=== PATIENT | male | born 1990 | race American Indian/Alaskan Native ===

== ENCOUNTER 2016-11-23 15:36 | Emergency (ER) | payer BC ==
[2016-11-23 15:36] VITALS: BMI 26.1
[2016-11-23 15:49] VITALS: BP 148/83; PULSE 79; RESP 16; TEMP 98.4; O2SAT 99
--- NOTE | 2016-11-23 16:14 | ED PDOC ---
Arrival/HPI - General Chief Complaint: Chest Pain Time Seen by Provider: 11/23/16 15:44 Historian: Patient - History of Present Illness Narrative History of Present Illness (Text): 11/23/16 15:55 Conchita Gilmore is a 25 year old male, whose past medical history includes diabetes and hypertension, who presents to the emergency department complaining of chest pain since this morning. Patient describes his pain to be midsternal but is unable to characterize the pain. Patient reportedly states that he had an AR when he was 18 year old, no angiogram was done, and no stents were placed. Patient is a poor historian and states that his last AR occured in [place] and is therefore unsure eho his providers were at that time. Upon arrival, patient is asking for immediate discharge and does not want ant further evaluation to be done. Time/Duration: 4-6 hours Symptom Onset: Gradual Symptom Course: Unchanged Activities at Onset: Rest Context: Home Past Medical History - Provider Review Nursing Documentation Reviewed: Yes - Past History Past History: No Previous - Infectious Disease Hx of Infectious Diseases: None - Tetanus Immunization Tetanus Immunization: Unknown - Cardiac Hx Cardiac Disorders: Yes Hx Hypertension: Yes Other/Comment: hyper trophic cardiomyopathy - Pulmonary Hx Respiratory Disorders: No - Endocrine/Metabolic Hx Diabetes Mellitus Type 2: Yes (DIET CONTROLLED) - Hematological/Oncological Hx Anemia: Yes - Psychiatric Hx Depression: No Hx Substance Use: No - Past Surgical History Past Surgical History: No Previous - Anesthesia Hx Anesthesia: No - Suicidal Assessment Feels Threatened In Home Enviroment: No Family/Social History - Physician Review Nursing Documentation Reviewed: Yes Family/Social History: No Known Family HX Smoking Status: Light Smoker < 10 Cigarettes Daily Hx Alcohol Use: Yes Frequency of alcohol use: Few days per week Hx Substance Use: No Hx Substance Use Treatment: No Allergies/Home Meds Allergies/Adverse Reactions: Allergies peanut Allergy (Verified 12/06/15 11:44) ANAPHYLAXIS Home Medications: Home Meds Medication Instructions Recorded Confirmed No Known Home Med 11/23/16 11/23/16 Review of Systems - Physician Review All systems were reviewed & negative as marked: Yes - Review of Systems Constitutional: absent: Fevers, Night Sweats Eyes: absent: Vision Changes ENT: absent: Hearing Changes Respiratory: absent: SOB Cardiovascular: Chest Pain Gastrointestinal: absent: Abdominal Pain Genitourinary Male: absent: Dysuria, Urinary Output Changes Musculoskeletal: absent: Arthralgias, Back Pain Skin: absent: Rash Neurological: absent: Headache Endocrine: absent: Diaphoresis Hemo/Lymphatic: absent: Adenopathy Psychiatric: absent: Anxiety Physical Exam Vital Signs Reviewed: Yes Vital Signs Temp Pulse Pulse Resp BP BP Pulse Ox 11/23/16 16:11 79 148/83 11/23/16 15:49 98.4 F 79 16 148/83 99 Temperature: Afebrile Blood Pressure: Normal Pulse: Regular Respiratory Rate: Normal Appearance: Positive for: Well-Appearing, Non-Toxic, Comfortable Pain Distress: None Mental Status: Positive for: Alert and Oriented X 3 - Systems Exam Head: Present: Atraumatic, Normocephalic Pupils: Present: PERRL Extroacular Muscles: Present: EOMI Conjunctiva: Present: Normal Mouth: Present: Moist Mucous Membranes Neck: Present: Normal Range of Motion Respiratory/Chest: Present: Clear to Auscultation, Good Air Exchange. No: Respiratory Distress, Accessory Muscle Use Cardiovascular: Present: Regular Rate and Rhythm, Normal S1, S2. No: Murmurs Abdomen: Present: Tenderness (mild epigatric tenderness). No: Rebound, Guarding Back: Present: Normal Inspection Upper Extremity: Present: Normal Inspection. No: Cyanosis, Edema Lower Extremity: Present: Normal Inspection. No: Edema Neurological: Present: GCS=15, CN II-XII Intact, Speech Normal Skin: Present: Warm, Dry, Normal Color. No: Rashes Psychiatric: Present: Alert, Oriented x 3, Normal Insight, Normal Concentration Medical Decision Making ED Course and Treatment: 11/23/16 16:00 Impression: 25 year old male complaining of chest pain since this morning. Progress Notes: EKG: Ordered, reviewed, and independently interpreted the EKG. Rate : 78 BPM Rhythm : NSR Interpretation : No ST-segment elevations or depressions, no T-wave inversions, normal intervals. Comparison : No previous EKG for comparison. Leaving Against Medical Advice (AMA): The patient is choosing to leave against medical advice. I have personally explained to the patient that choosing to do so may result in permanent bodily harm or . I have discussed at great length that without further evaluation and monitoring there may be unforeseen circumstances and/or deterioration causing permanent bodily harm or as a result of their choice. The patient is alert, oriented, and shows the mental capacity to make clear decisions regarding the patients health care at this time. The patient continues to wish to leave against medical advice. In light of the patients decision to leave against medical advice, follow-up has been arranged and the patient is aware of the importance to following up as instructed. The patient has been advised that they should return to the emergency room immediately if they change their mind at any time, or if their condition begins to change or worsen in any way. 11/23/16 16:34 pt reports h/[place] of [place], in "[place]". pt cannot provide futher hx. pt advised to check labs, however on arriavl pt is asking for immediate d/c. signs Leaving Against Medical Advice (AMA) - Scribe Statement The provider has reviewed the documentation as recorded by the Scribe Tasia John Provider Scribe Attestation: All medical record entries made by the Scribe were at my direction and personally dictated by me. I have reviewed the chart and agree that the record accurately reflects my personal performance of the history, physical exam, medical decision making, and the department course for this patient. I have also personally directed, reviewed, and agree with the discharge instructions and disposition. Disposition/Present on Arrival - Present on Arrival Any Indicators Present on Arrival: No History of DVT/PE: No History of Uncontrolled Diabetes: No Urinary Catheter: No History of Decub. Ulcer: No History Surgical Site Infection Following: None - Disposition Have Diagnosis and Disposition been Completed?: Yes Diagnosis: Chest pain Disposition: HOME/ ROUTINE Disposition Time: 16:36 Patient Problems: Current Active Problems Problem Status Onset Chest pain Acute Condition: STABLE Discharge Instructions (ExitCare): Chest Pain (ED), Against Medical Advice (ED) Additional Instructions: please follow up with you rdoctor/specialist. return to emergency room with worsening symptoms or concerns. Referrals: [facility] [Outside] - [place] up [place] [facility] [place] [facility] [place] - Follow up with primary Leonel Pimentel MD [Staff Provider] - Follow up with primary Forms: [employer] (Dutch)
--- NOTE | 2016-11-24 10:42 | CARD ---
APPROVED REPORT EKG Measurement Heart [id number] AR [id number] <Conclusion> Normal sinus rhythm with sinus arrhythmia No change
== END 2016-11-23 16:15 | disposition home or self-care (01) ==
LOC: ED 15:36
DX: R07.9 Chest pain, unspecified (principal)

== ENCOUNTER 2017-06-11 23:40 | Observation (INO) | payer BC ==
[2017-06-11 23:43] VITALS: BMI 31.6
[2017-06-12] MEDS ORDERED: Albuterol-Ipratrop 3 mg / 0.5 (3 ml) UD IH STA (00:35)
--- NOTE | 2017-06-12 00:42 | ED PDOC ---
Arrival/HPI - General Chief Complaint: Chest Pain Time Seen by Provider: 06/12/17 00:33 Historian: Patient - History of Present Illness Narrative History of Present Illness (Text): 06/12/17 00:30 A 26 year old male, whose past medical history includes diabetes(diet controlled ),hypertension,Raynauds Disease presents to the emergency department complaining of chest discomfort which patient describes as pressure-like. Patient reports also reports hx. of chronic cough past month.Started antibiotic with no relief.No SOB.Patient denies back pain, leg pain, or any other complaints. No PMD Time/Duration: > week (past few weeks), Other (tonight chest discomfort began) Symptom Onset: Sudden Symptom Course: Unchanged Past Medical History - Provider Review Nursing Documentation Reviewed: Yes - Past History Past History: No Previous - Infectious Disease Hx of Infectious Diseases: None - Tetanus Immunization Tetanus Immunization: Unknown - Cardiac Hx Cardiac Disorders: Yes Hx Hypertension: Yes Other/Comment: hyper trophic cardiomyopathy - Pulmonary Hx Respiratory Disorders: No - Neurological Hx Neurological Disorder: No - HEENT Hx HEENT Disorder: No - Renal Hx Renal Disorder: No - Endocrine/Metabolic Hx Endocrine Disorders: Yes Hx Diabetes Mellitus Type 2: Yes (DIET CONTROLLED) - Hematological/Oncological Hx Blood Disorders: Yes Hx Anemia: Yes - Integumentary Hx Dermatological Disorder: No - Musculoskeletal/Rheumatological Hx Musculoskeletal Disorders: No - Gastrointestinal Hx Gastrointestinal Disorders: No - Genitourinary/Gynecological Hx Genitourinary Disorders: No - Psychiatric Hx Psychophysiologic Disorder: No Hx Depression: No Hx Substance Use: No - Past Surgical History Past Surgical History: No Previous - Anesthesia Hx Anesthesia: No - Suicidal Assessment Feels Threatened In Home Enviroment: No Family/Social History - Physician Review Nursing Documentation Reviewed: Yes Family/Social History: No Known Family HX Smoking Status: Light Smoker < 10 Cigarettes Daily Hx Alcohol Use: Yes Hx Substance Use: No Hx Substance Use Treatment: No Allergies/Home Meds Allergies/Adverse Reactions: Allergies peanut Allergy (Verified 06/11/17 23:42) ANAPHYLAXIS Home Medications: Home Meds Medication Instructions Recorded Confirmed No Known Home Med 11/23/16 06/11/17 Review of Systems - Physician Review All systems were reviewed & negative as marked: Yes - Review of Systems Constitutional: Fevers (subjective) Respiratory: Cough (chronic cough for past few weeks). absent: SOB Cardiovascular: Chest Pain (associated chest discomfort beginning tonight) Musculoskeletal: absent: Back Pain, Other (no leg pain) Physical Exam Vital Signs Reviewed: Yes Vital Signs Temp Pulse Resp BP Pulse Ox 06/12/17 04:03 98 F 81 18 130/83 99 06/12/17 02:45 92 H 19 121/55 L 97 06/12/17 01:36 99 H 22 141/71 96 06/11/17 23:43 97.3 F L 108 H 20 127/88 99 Temperature: Afebrile Blood Pressure: Normal Pulse: Regular Respiratory Rate: Normal Appearance: Positive for: Well-Appearing Pain Distress: None Mental Status: Positive for: Alert and Oriented X 3 - Systems Exam Head: Present: Atraumatic, Normocephalic Pupils: Present: PERRL Extroacular Muscles: Present: EOMI Conjunctiva: Present: Normal Mouth: Present: Moist Mucous Membranes Neck: Present: Normal Range of Motion Respiratory/Chest: Present: Rhonchi (bilaterally) Cardiovascular: Present: Regular Rate and Rhythm, Normal S1, S2. No: Murmurs Abdomen: Present: Normal Bowel Sounds. No: Tenderness, Distention, Peritoneal Signs Back: Present: Normal Inspection Upper Extremity: Present: Normal Inspection. No: Cyanosis, Edema Lower Extremity: Present: Normal Inspection. No: Edema Neurological: Present: GCS=15, CN II-XII Intact, Speech Normal Skin: Present: Warm, Dry, Normal Color. No: Rashes Psychiatric: Present: Alert, Oriented x 3, Normal Insight, Normal Concentration Medical Decision Making ED Course and Treatment: 06/12/17 00:34 Impression: 26 year old male with chronic cough for 1 month and tonight associated chest discomfort. Physical exam shows rhonchi bilaterally; overall normal examination. Plan: -- EKG -- Chest X-ray -- Labs -- Duoneb -- Rapid Flu Test -- Reassess and disposition Prior Visits: Notes and results from previous visits were reviewed. Patient was last seen in the emergency department on 11/23/2016 for chest pain. Patient was d/c home. Progress Notes: EKG: Ordered, reviewed, and independently interpreted the EKG. Rate : 104 BPM Rhythm : Sinus tachycardia Interpretation : Non-specific ST- and T- wave changes. Comparison : No previous EKG for comparison. 06/12/17 05:[address] Dudley, whom accepts patient into service. Requests Dr. Armando and Dr. Nava consults. - Lab Interpretations Lab Results: 06/12/17 00:45 06/12/17 00:45 Lab Results 06/12/17 00:45: Influenza Typ A,B (EIA) Negative for flu a/b 02 00:45: WBC 6.0 D, RBC 5.01, Hgb 13.6 L, Hct 39.9 L, MCV 79.6 L, MCH 27.1, MCHC 34.1, RDW 13.1, Plt Count 255, MPV 8.3 06/12/17 00:45: Sodium 143, Potassium 3.8, Chloride 105, Carbon Dioxide 27, Anion Gap 15, BUN 17, Creatinine 1.2, Est GFR ( Amer) > 60, Est GFR (Non- Af Amer) > 60, Random Glucose 98, Calcium 10.1, Total Bilirubin 0.2, AST 31, ALT 38, Alkaline Phosphatase 57, Lactate Dehydrogenase 470, Total Creatine Kinase 170, Troponin I < 0.01, Total Protein 7.3, Albumin 4.3, Globulin 3.0, Albumin/Globulin Ratio 1.4 06/12/17 00:45: PT 10.5, INR 0.92 L, APTT 27.3, D-Dimer, Quantitative TNP I have reviewed the lab results: Yes - RAD Interpretation Narrative RAD Interpretations (Text): 06/12/17 04:49 CXR- No acute process Radiology Orders: 06/12/17 00:34 CHEST PORTABLE [RAD] Stat Watch And Clock Repair Clerk: ED Physician - Medication Orders Current Medication Orders: Discontinued Medications Albuterol/Ipratropium (Duoneb 3 Mg/0.5 Mg (3 Ml) Ud) 3 ml IH ONCE STA Stop: 06/12/17 00:36 Last Admin: 06/12/17 00:43 Dose: 3 ml Aspirin (Aspirin) 325 mg PO ONCE STA Stop: 06/12/17 04:56 Last Admin: 06/12/17 05:01 Dose: 325 mg - Scribe Statement The provider has reviewed the documentation as recorded by the Aida Guadalupe Provider Scribe Attestation: All medical record entries made by the Yelenaibaguila were at my direction and personally dictated by me. I have reviewed the chart and agree that the record accurately reflects my personal performance of the history, physical exam, medical decision making, and the department course for this patient. I have also personally directed, reviewed, and agree with the discharge instructions and disposition. Disposition/Present on Arrival - Present on Arrival Any Indicators Present on Arrival: No History of DVT/PE: No History of Uncontrolled Diabetes: No Urinary Catheter: No History of Decub. Ulcer: No History Surgical Site Infection Following: None - Disposition Have Diagnosis and Disposition been Completed?: Yes Diagnosis: Chest pain Disposition: HOSPITALIZED Disposition Time: 04:58 Patient Plan: Observation Patient Problems: Current Active Problems Problem Status Onset Chest pain Acute Condition: STABLE Discharge Instructions (ExitCare): Chest Pain (ED) Forms: [employer] (Slovenian)
[2017-06-12 01:22] LABS: ALB/GLOB RATIO 1.4 (1.1-1.8); ALBUMIN 4.3 g/dL (3.0-4.8); ALT/SGPT 38 U/L (7-56); AST/SGOT 31 U/L (17-59); BLOOD UREA NITROGEN 17 mg/dL (7-21); CALCIUM 10.1 mg/dL (8.4-10.5); GFR AFRICAN-AMERICAN > 60; GFR NON-AFRICAN AMERICAN > 60; HEMOGLOBIN 13.6 g/dL (14.0-18.0); MEAN CELL VOLUME 79.6 fl (80.0-105.0); MEAN CORPUSCULAR HEMOGLOBIN 27.1 pg (25.0-35.0); MEAN CORPUSCULAR HGB CONC 34.1 g/dl (31.0-37.0); MEAN PLATELET VOLUME 8.3 fl (7.0-11.0); RBC 5.01 10^6/uL (3.5-6.1); RED CELL DISTRIBUTION WIDTH 13.1 % (11.5-14.5)
[2017-06-12 01:33] LABS: TROPONIN I < 0.01 ng/mL
[2017-06-12 02:29] LABS: INR 0.92 (0.93-1.08); PARTIAL THROMBOPLASTIN TIME 27.3 Seconds (25.1-36.5); PROTHROMBIN TIME 10.5 SECONDS (9.4-12.5)
[2017-06-12 04:04] VITALS: O2SAT 99
[2017-06-12] MEDS ORDERED: Albuterol-Ipratrop 3 mg / 0.5 (3 ml) UD IH PRN (06:55)
[2017-06-12] MEDS: Budesonide 0.5 mg/2 ml Inhal Susp UD IH SCH ×2 (07:47→19:42)
[2017-06-12] MEDS: Albuterol-Ipratrop 3 mg / 0.5 (3 ml) UD IH SCH ×3 (07:47→19:42)
--- NOTE | 2017-06-12 09:26 | HP ---
HISTORY OF PRESENT ILLNESS: I have seen him in the past. I was called down to the emergency room to evaluate him. He is in an observation bed. He comes in to the emergency room with a history of chest discomfort, pressure-like, shortness of breath, chronic cough for about a month. He was on the antibiotics. No relief. He cannot get this better. Now he is feeling bad and he comes to the emergency room. This is a 26-year-old man with shortness of breath and chest discomfort. PAST MEDICAL HISTORY: He has a past medical history that includes diabetes; hypertension; Raynaud's; chronic cough, it is going on a few weeks, he had the antibiotics, it did not work, he failed outpatient treatment. He has got hypertrophic cardiomyopathy. He has got diet-controlled diabetes, anemia history. FAMILY HISTORY: He has had unknown family history I believe of diabetes. SOCIAL HISTORY: He is still smoking cigarettes, still drinking alcohol. No drugs. ALLERGIES:' HE HAS A PEANUT ALLERGY. MEDICATIONS: He tells he takes no medications at home. REVIEW OF SYSTEMS: He is having fevers, subjective; sore throat; change in voice; cough, chronic for weeks, productive some days, nonproductive other days, some mucus, some yellow, some clear; chest discomfort; chest pain, just started, which made it worse the other night. No nausea, vomiting, constipation, diarrhea. No back pain. He could still walk. No problems with his legs. His skin for the most part which he could tell is intact. No ulcers or rashes. PHYSICAL EXAMINATION: VITAL SIGNS: He has a 97.3 temp, 108 pulse, 20 respiratory rate, 127/88 blood pressure, 99% O2 sat on oxygen. HEENT: His head is atraumatic, normocephalic. He is well appearing. He looks uncomfortable. Alert and oriented x3. Extraocular muscles are intact. Pupils reactive to light. Membranes are dry. NECK: Supple. LUNGS: He has decreased breath sounds, rhonchi, bronchitis sounds bilaterally, changes with cough. HEART: Regular rate. Normal S1 and S2. Normal bowel sounds. No tenderness. No guarding. No rebound. No CVA tenderness either. EXTREMITIES: Have no edema. GCS is 15. Cranial nerves II through XII grossly intact. Normal speech. SKIN: Warm and dry. No apparent rashes or ulcers appreciated. NEUROLOGIC: Alert and oriented x3. Normal insight. LYMPHATICS: Thyroid midline. No palpable appreciable lymphadenopathy. LABORATORY DATA: He had multiple tests. He has a 6 white count, 13.6 hemoglobin, 39.9 hematocrit with a 255 platelets. 0.92 INR. The D-dimer is pending. 143 sodium, potassium 3.8, BUN 70, creatinine 1.2, GFR is greater than 60, sugar is 98, calcium is 10.1, total bili is 0.2, AST is 31, ALT is 38, alk phosphatase is 57, lactate dehydrogenase is 470, total creatine kinase is 170. Troponin I is less than 0.01, total protein 7.3, albumin is 4.3 and the influenza is negative. There is a chest x-ray that is pending. IMPRESSION AND PLAN: He will be put on observation status. He will have consult with Cardiology and Pulmonology. He is on DuoNebs, Levaquin, Solu-Medrol. We will check his troponins and he is here for shortness of breath, chest pain. Pool Dudley DO
--- NOTE | 2017-06-12 09:46 | RAD ---
HISTORY: cough COMPARISON: 12/06/2015 FINDINGS: LUNGS: No active pulmonary disease. PLEURA: No significant pleural effusion identified, no pneumothorax apparent. CARDIOVASCULAR: Normal. OSSEOUS STRUCTURES: No significant abnormalities. VISUALIZED UPPER ABDOMEN: Normal. OTHER FINDINGS: None. IMPRESSION: No active disease.
[2017-06-12] MEDS: MethylPREDNISolone 40 mg Vial IVP SCH ×2 (10:03→21:27)
[2017-06-12] MEDS: levoFLOXacin 500 MG TAB PO SCH (10:03)
--- NOTE | 2017-06-12 11:52 | CON ---
DATE: 06/12/2017 PULMONARY CONSULTATION REASON FOR CONSULTATION: Cough. REFERRING PHYSICIAN: Pool Dudley DO HISTORY OF PRESENT ILLNESS: The patient is a 26-year-old male, with past medical history significant for diabetes mellitus, hypertension, who presents to [facility] with main complaint of chest discomfort for the past 2 days. The patient describes the chest discomfort as a pressure-like feeling. The patient was thus admitted for additional evaluation. There is no history of shortness of breath at rest or dyspnea on exertion. There is a history of cough with occasional sputum production for the past month. There is no history of coughing up of blood. There is no history of chest discomfort - made worse with deep respirations. However, the chest discomfort is made worse when he coughs. There is no history of temperatures, chills or infectious exposure. There is no history of night sweats, weight loss or appetite change prior to the above events. No history of leg or calf pains. No history of syncope or diaphoresis. No history of recent travel or trauma. REVIEW OF SYSTEMS: No history of nausea, vomiting or diarrhea. No acute urinary symptoms. No new neurologic complaints. Rest of the review of systems is negative. ALLERGIES: PEANUTS. SOCIAL HISTORY: Positive for tobacco and negative for alcohol. FAMILY HISTORY: No inheritable diseases. HOME MEDICATIONS: Listed as - no known home medications. PHYSICAL EXAMINATION GENERAL: The patient is not short of breath at rest. He is not using accessory muscles for breathing. VITAL SIGNS: Temperature is 98.0, pulse is 76, respirations 19, blood pressure 139/76. Oxygen saturation on room air is 99%. HEENT: Normocephalic, atraumatic. No JVD. CARDIOVASCULAR: Positive S1, S2. No S3 gallop. LUNGS: Decreased breath sounds at the bases. Scattered bilateral rhonchi. No wheezing. EXTREMITIES: No clubbing, cyanosis or edema. Calves are nontender to palpation. GI: Abdomen is soft, nontender and nondistended. Bowel sounds are positive. SKIN: No acute rash. NEUROLOGIC: Limited at the present time. PERTINENT LABORATORY DATA: Chest x-ray was done and reviewed. There are no significant infiltrates noted. Official results are pending. CBC: White count 6.0, hemoglobin 13.6, hematocrit 39.9, platelets of 255,000. Complete metabolic profile - all values within normal limits. IMPRESSION: 1. Acute bronchitis. 2. Chest discomfort. 3. Mild anemia. 4. Diabetes mellitus. PLAN: The patient presents to [facility] with chief complaint of chest discomfort over the past two days. He does also give a history of a cough, with occasional sputum production, for the past month. While he states that the chest discomfort is a pressure-like feeling, he also states that the chest discomfort is elicited by coughing(?musculoskeletal). Cardiology evaluation with Dr. Armando has been ordered. I did review the chest x-ray as above. I do not appreciate any significant infiltrates. Official results are pending. On physical exam, the patient is in mild bronchospasm. However, there is no significant alveolar-arterial gradient. I will start the patient on nebulizer treatments and low-dose intravenous steroids for now. I will also place the patient on oral antibiotic therapy - given the chronicity of the symptoms. The patient does feel better this morning and is clinically improved - compared to the past few days. Additional pulmonary intervention will be based on the clinical status of the patient. I did discuss the above with Dr. Dudley. Thank you very much for this pulmonary consultation. Gold Aguayo MD [facility]
[2017-06-12 12:27] VITALS: RESP 20
[2017-06-12] MEDS ORDERED: Influenza Vaccine 60 mcg/0.5 mL SYR (4YR UP) IM ONE (14:37)
[2017-06-12] MEDS ORDERED: Pneumococcal 23-Valent Vaccine IM ONE (14:37)
--- NOTE | 2017-06-12 15:56 | CON ---
DATE: 06/12/2017 CARDIOLOGY CONSULTATION HISTORY OF PRESENT ILLNESS: The patient is a 26-year-old male who presents with an episode of chest discomfort after an episode of coughing. According to the patient, he has been on antibiotics for this upper respiratory infection for the past several weeks. The patient's past medical history is free of cardiac disease. His echocardiogram in 2016 revealed normal LV function. However, he has cardiac risk factors include diabetes mellitus, hypertension, Raynaud's phenomenon as well as a family history of CAD. In addition, social history reveals that the patient smokes approximately 10 cigarettes per day. No drugs history. No previous cardiac history. REVIEW OF SYSTEMS: A 14-point review of systems reviewed in detail. His symptoms are dominated by upper respiratory infection. PHYSICAL EXAMINATION VITAL SIGNS: The blood pressure is 130/76, the heart rates in the 70s. NECK: Negative JVD. LUNGS: Without rales. HEART: Reveals S1 and S2. EXTREMITIES: Without edema. EKG shows normal sinus rhythm with no acute changes. LABORATORY DATA: His hemoglobin is 13.6. Troponins are negative x2. IMPRESSION: 1. Atypical chest pain. 2. No evidence for acute coronary syndrome. 3. Diabetes mellitus. 4. Hypertension. 5. History of Raynaud's phenomenon. 6. He is an active smoker. PLAN: Given these findings, the patient from a cardiac perspective can be discharged. Given his cardiac risk factors, we will bring the patient back next week for a stress test. I have discussed with the patient about his needs to stop smoking. He understands the risk. Adolph Armando MD
--- NOTE | 2017-06-12 22:07 | CARD ---
APPROVED REPORT EKG Measurement Heart [id number] DC [id number] [id number] <Conclusion> Sinus tachycardia Otherwise normal ECG
[2017-06-13] MEDS: Albuterol-Ipratrop 3 mg / 0.5 (3 ml) UD IH SCH ×2 (01:09→07:17)
[2017-06-13 07:14] LABS: HEMOGLOBIN 14.1 g/dL (14.0-18.0); MEAN CELL VOLUME 77.2 fl (80.0-105.0); MEAN CORPUSCULAR HEMOGLOBIN 26.3 pg (25.0-35.0); MEAN CORPUSCULAR HGB CONC 34.1 g/dl (31.0-37.0); MEAN PLATELET VOLUME 8.5 fl (7.0-11.0); RBC 5.36 10^6/uL (3.5-6.1); WHITE BLOOD COUNT 12.5 10^3/ul (4.5-11.0)
[2017-06-13] MEDS: Budesonide 0.5 mg/2 ml Inhal Susp UD IH SCH (07:17)
[2017-06-13 07:20] LABS: ALB/GLOB RATIO 1.5 (1.1-1.8); ALBUMIN 4.4 g/dL (3.0-4.8); ALT/SGPT 30 U/L (7-56); AST/SGOT 22 U/L (17-59); BLOOD UREA NITROGEN 13 mg/dL (7-21); CALCIUM 10.3 mg/dL (8.4-10.5); GFR AFRICAN-AMERICAN > 60; GFR NON-AFRICAN AMERICAN > 60
--- NOTE | 2017-06-13 08:09 | PN ---
DATE: 06/13/2017 PULMONARY NOTE SUBJECTIVE: The patient appears very comfortable this morning. He is not short of breath at rest. OBJECTIVE VITAL SIGNS (last noted in the computer): Temperature is 98.0, pulse 56, respirations 18, blood pressure 125/72. Oxygen saturation on room air is 99%. HEENT: Normocephalic, atraumatic. No JVD. CARDIOVASCULAR: Positive S1, S2. No S3 gallop. LUNGS: Improved breath sounds at the bases. Significant decrease in the bilateral rhonchi. No wheezing. EXTREMITIES: No clubbing, cyanosis or edema. Calves are nontender to palpation. GASTROINTESTINAL: Abdomen is soft, nontender, nondistended. Bowel sounds are positive. SKIN: No acute rash. NEUROLOGIC: Exam limited at the present time. IMPRESSION 1. Acute bronchitis. 2. Chest discomfort - resolved. 3. Mild anemia. 4. Diabetes mellitus. PLAN: The patient appears very comfortable this morning. He is not short of breath at rest. His chest discomfort has now resolved. He does state to feeling much, much better overall. He is asking whether he can go home today. On physical exam, there is a significant decrease in the bronchospasm. In addition, the oxygen saturation on room air is now 99%. I will continue the current nebulizer treatments and change to oral steroids this morning. The patient also remains on oral antibiotic therapy. There are no temperatures noted. Clinical status of the patient is significantly improved. Input by Dr. Armando (Cardiology) is also noted. I will discuss the above with Dr. Dudley this morning. Gold Aguayo MD [facility]
[2017-06-13 08:13] VITALS: BP 117/63; PULSE 83; TEMP 97.5
[2017-06-13] MEDS: levoFLOXacin 500 MG TAB PO SCH (09:08)
--- NOTE | 2017-06-14 01:40 | DS ---
HISTORY OF PRESENT ILLNESS: He is doing well, sitting out of bed to chair, wants to go home. He is breathing well. He is off IV steroids. He is on prednisone. He will be on albuterol inhaler, ipratropium inhaler, budesonide inhaler, prednisone 40 for 3 days, 30 for 3 days, 20 for 3 days, 10 for 3 days, then stop; Levaquin 500 one tablet for 6 days. PHYSICAL EXAMINATION: VITAL SIGNS: 97.5 temp, 83 pulse, 117/63 blood pressure, 20 respiratory rate, 98% O2 sat on room air. HEENT: Head is atraumatic, normocephalic. HEART: Regular rate. LUNGS: Decreased breathing sounds, but clear to auscultation. No wheezes. No rhonchi. No rales. ABDOMEN: Soft, nontender. Positive bowel sounds. EXTREMITIES: No edema. LABORATORY DATA: He has a 143 sodium, potassium 4.3, BUN 30, creatinine 1, GFR is greater than 60, sugar is 136, calcium is 10.3, total bili is 0.4, AST is 22, ALT is 30, alk phos 50, troponin is less than 0.01, total protein 7.4. White count 12.5 - steroid related, 14.1 hemoglobin, 41.4 hematocrit with 251 platelets. ASSESSMENT AND PLAN: He was seen by Cardiology and by Pulmonology. They both said he can be discharged for outpatient followup. His prescriptions were given, his diet was given, outpatient followup was given. The patient is doing very well. Call us if there are any issues. Pool Dudley DO
== END 2017-06-13 09:57 | disposition home or self-care (01) ==
LOC: ED 23:40 → ERH 06-12 05:01 → 3RSO 06-12 07:06 → 5RNO 06-12 13:35
PROVIDERS: ADMIT Family Medicine; ATTEND Family Medicine
DX: J20.9 Acute bronchitis, unspecified (principal); D64.9 Anemia, unspecified; E11.9 Type 2 diabetes mellitus without complications; F17.210 Nicotine dependence, cigarettes, uncomplicated; I10 Essential (primary) hypertension; I73.00 Raynaud's syndrome without gangrene; I42.2 Other hypertrophic cardiomyopathy; J06.9 Acute upper respiratory infection, unspecified; Z82.49 Family history of ischemic heart disease and other diseases of the circulatory system; R07.89 Other chest pain
CPT/HCPCS: 36415; 71045; 80053; 82550; 82948; 83615; 84484; 85027; 85610; 85730; 87804; 93005; 94640; 94760; 99285; G0378; J2920

== ENCOUNTER 2017-11-08 07:57 | Emergency (ER) | payer BC ==
[2017-11-08 07:57] VITALS: BMI 31.6
--- NOTE | 2017-11-08 08:18 | ED PDOC ---
Arrival/HPI <Kira Pan - Last Filed: 11/08/17 09:10> - General Historian: Patient <Negin Newberry - Last Filed: 11/08/17 09:12> - General Chief Complaint: Headache Time Seen by Provider: 11/08/17 08:01 - History of Present Illness Narrative History of Present Illness (Text): 11/08/17 08:16 Patient is a 26 year old male with past medical history of DM, HTN, Raynaud's Disease who presents to the emergency dept for migraine that started last night at approximately 10pm. Patient states that the migraine has been worsening, constant in nature. Sensitive to light. Has not tried taking anything for the migraine. Last migraine was 7 months ago. Currently feels nauseous but denies any vomiting. (Negin Newberry) Past Medical History - Provider Review Nursing Documentation Reviewed: Yes - Past History Past History: No Previous - Infectious Disease Hx of Infectious Diseases: None - Tetanus Immunization Tetanus Immunization: Unknown - Cardiac Hx Cardiac Disorders: Yes Hx Hypertension: Yes Other/Comment: hyperTROPHIC cardiomyopathy - Pulmonary Hx Respiratory Disorders: No - Neurological Hx Neurological Disorder: No - HEENT Hx HEENT Disorder: No - Renal Hx Renal Disorder: No - Endocrine/Metabolic Hx Endocrine Disorders: Yes Hx Diabetes Mellitus Type 2: Yes (DIET CONTROLLED) - Hematological/Oncological Hx Blood Disorders: Yes (RAYNAUD'S DSE) Hx Anemia: Yes - Integumentary Hx Dermatological Disorder: No - Musculoskeletal/Rheumatological Hx Musculoskeletal Disorders: No Hx Falls: No - Gastrointestinal Hx Gastrointestinal Disorders: No - Genitourinary/Gynecological Hx Genitourinary Disorders: No - Psychiatric Hx Psychophysiologic Disorder: No Hx Depression: No Hx Substance Use: Yes (DENIES) - Past Surgical History Past Surgical History: No Previous - Anesthesia Hx Anesthesia: No - Suicidal Assessment Feels Threatened In Home Enviroment: No <Negin Newberry - Last Filed: 11/08/17 09:12> Family/Social History <Kira Pan - Last Filed: 11/08/17 09:10> - Physician Review Nursing Documentation Reviewed: Yes Family/Social History: CAD/MT Smoking Status: Heavy Smoker > 10 Cigarettes Daily Hx Alcohol Use: Yes (DRINKS 1 GLASS/DAY) Frequency of alcohol use: Daily Hx Substance Use: Yes (DENIES) Hx Substance Use Treatment: No <Negin Newberry - Last Filed: 11/08/17 09:12> Narrative Family History (Free Text): 11/08/17 08:19 Father - Heart Disease (Negin Newberry) Allergies/Home Meds <Kira Pan - Last Filed: 11/08/17 09:10> <Negin Newberry - Last Filed: 11/08/17 09:12> Allergies/Adverse Reactions: Allergies peanut Allergy (Verified 11/08/17 08:07) ANAPHYLAXIS Home Medications: Home Meds Medication Instructions Recorded Confirmed Candesartan/Hydrochlorothiazid 1 tab PO DAILY 11/08/17 11/08/17 [Candesartan-Hctz 16-12.5 mg Tb] Review of Systems - Review of Systems Constitutional: absent: Fatigue, Weight Change Eyes: Photophobia. absent: Vision Changes, Eye Pain ENT: absent: Hearing Changes Respiratory: absent: SOB, Cough Cardiovascular: absent: Chest Pain, Palpitations Gastrointestinal: absent: Abdominal Pain, Constipation, Diarrhea Genitourinary Male: absent: Dysuria Neurological: Headache. absent: Dizziness <Negin Newberry - Last Filed: 11/08/17 09:12> Physical Exam Vital Signs Reviewed: Yes Temperature: Afebrile Blood Pressure: Normal Pulse: Regular Respiratory Rate: Normal Appearance: Positive for: Well-Appearing, Non-Toxic, Comfortable Pain Distress: None Mental Status: Positive for: Alert and Oriented X 3 <Kira Pan - Last Filed: 11/08/17 09:10> Appearance: Positive for: Well-Appearing, Non-Toxic Pain Distress: Mild Mental Status: Positive for: Alert and Oriented X 3 - Systems Exam Head: Present: Atraumatic, Normocephalic Pupils: Present: PERRL Extroacular Muscles: Present: EOMI Conjunctiva: Present: Normal Mouth: Present: Moist Mucous Membranes Neck: Present: Normal Range of Motion Respiratory/Chest: Present: Clear to Auscultation, Good Air Exchange Cardiovascular: Present: Regular Rate and Rhythm, Normal S1, S2 Abdomen: Present: Normal Bowel Sounds. No: Tenderness Upper Extremity: Present: Normal Inspection. No: Cyanosis, Edema Lower Extremity: Present: Normal Inspection, NORMAL PULSES. No: Edema, CALF TENDERNESS Neurological: Present: GCS=15, CN II-XII Intact, Speech Normal Skin: Present: Warm, Dry, Normal Color Psychiatric: Present: Alert, Oriented x 3 <Negin Newberry - Last Filed: 11/08/17 09:12> Vital Signs Temp Pulse Resp BP Pulse Ox 11/08/17 08:06 99.2 F 86 17 124/85 97 11/08/17 07:58 99.2 F 86 17 124/85 97 Medical Decision Making <Kira Pan - Last Filed: 11/08/17 09:10> Re-evaluation Time: 09:07 Reassessment Condition: Improved <Negin Newberry - Last Filed: 11/08/17 09:12> ED Course and Treatment: 11/08/17 In agreement with resident note, which includes further HPI details. Patient was seen and evaluated with resident, came up with plan and treatment together. (Kira Pan) 11/08/17 09:07 ---Tylenol 650mg PO STAT ---Reglan 10mg IVP STAT (Negin Newberry) - Medication Orders Current Medication Orders: Discontinued Medications Acetaminophen (Tylenol 325mg Tab) 650 mg PO STAT STA Stop: 11/08/17 08:16 Last Admin: 11/08/17 08:32 Dose: 650 mg Metoclopramide HCl (Reglan) 10 mg IVP STAT STA Stop: 11/08/17 08:16 Last Admin: 11/08/17 08:40 Dose: 10 mg - PA / CHILDREN'S LITERATURE PROFESSOR / Resident Statement MD/DO has reviewed & agrees with the documentation as recorded. MD/DO has examined the patient and agrees with the treatment plan. - Scribe Statement The provider has reviewed the documentation as recorded by the Scribe <Kira Pan - Last Filed: 11/08/17 09:10> <Negin Newberry - Last Filed: 11/08/17 09:12> - Scribe Statement Lorraine Busby Provider Scribe Attestation: All medical record entries made by the Scribe were at my direction and personally dictated by me. I have reviewed the chart and agree that the record accurately reflects my personal performance of the history, physical exam, medical decision making, and the department course for this patient. I have also personally directed, reviewed, and agree with the discharge instructions and disposition. (Kira Pan) Disposition/Present on Arrival <Kira Pan - Last Filed: 11/08/17 09:10> - Present on Arrival Any Indicators Present on Arrival: No History of DVT/PE: No History of Uncontrolled Diabetes: No Urinary Catheter: No History of Decub. Ulcer: No History Surgical Site Infection Following: None - Disposition Have Diagnosis and Disposition been Completed?: Yes Disposition Time: 09:08 <Negin Newberry - Last Filed: 11/08/17 09:12> - Disposition Diagnosis: Migraine Disposition: HOME/ ROUTINE Patient Problems: Current Active Problems Problem Status Onset Migraine Acute Condition: GOOD Additional Instructions: You can Tylenol 650mg PO Q6H prn for headaches Follow up with PCP If having any worsening symptoms, please return to ED Referrals: Medina Cool MD [Primary Care Provider] - Follow up with primary Forms: [employer] ([place] Citizen)
[2017-11-08 08:19] VITALS: O2SAT 97
[2017-11-08 09:23] VITALS: BP 112/60; PULSE 84; RESP 18; TEMP 98.4
== END 2017-11-08 09:15 | disposition home or self-care (01) ==
LOC: ED 07:57
DX: G43.909 Migraine, unspecified, not intractable, without status migrainosus (principal); I10 Essential (primary) hypertension; E11.9 Type 2 diabetes mellitus without complications; F17.210 Nicotine dependence, cigarettes, uncomplicated; I73.00 Raynaud's syndrome without gangrene
CPT/HCPCS: 96374; 99285; J2765

== ENCOUNTER 2017-11-09 22:38 | Emergency (ER) | payer BC ==
[2017-11-09 22:57] VITALS: BMI 31.1
[2017-11-09] MEDS ORDERED: Sodium Chloride 0.9% 2,000 ML IV STA (23:23)
[2017-11-09] MEDS ORDERED: DiphenhydrAMINE 50 mg/ml Inj IVP STA (23:23)
--- NOTE | 2017-11-09 23:33 | ED PDOC ---
Arrival/HPI - General Chief Complaint: Headache Time Seen by Provider: 11/09/17 23:12 Historian: Patient - History of Present Illness Narrative History of Present Illness (Text): 11/09/17 23:18 26 year old, whose past medical history includes hypertension, diabetes, and Raynaud's Disease, presents to the emergency department complaining of reoccurring headache. Patient states he was seen here yesterday and was given Tylenol with relief. Once the Tylenol wore off, his headache returned and has not taken any medication for it since. He states he sees Dr. Brianna Walters for his headaches who gives him Butalbital and requests if we can give him some of that for the pain. Patient reports nausea, but denies any fever, chills, chest pain, shortness of breath, vomiting, diarrhea, urinary symptoms, back pain, neck pain, dizziness, or any other complaints. Symptom Onset: Gradual Symptom Course: Unchanged Activities at Onset: Light Context: Home Past Medical History - Provider Review Nursing Documentation Reviewed: Yes - Past History Past History: No Previous - Infectious Disease Hx of Infectious Diseases: None - Tetanus Immunization Tetanus Immunization: Unknown - Cardiac Hx Cardiac Disorders: Yes Hx Hypertension: Yes Other/Comment: hyperTROPHIC cardiomyopathy - Pulmonary Hx Respiratory Disorders: No - Neurological Hx Neurological Disorder: No - HEENT Hx HEENT Disorder: No - Renal Hx Renal Disorder: No - Endocrine/Metabolic Hx Endocrine Disorders: Yes Hx Diabetes Mellitus Type 2: Yes (DIET CONTROLLED) - Hematological/Oncological Hx Blood Disorders: Yes (RAYNAUD'S DSE) Hx Anemia: Yes - Integumentary Hx Dermatological Disorder: No - Musculoskeletal/Rheumatological Hx Musculoskeletal Disorders: No Hx Falls: No - Gastrointestinal Hx Gastrointestinal Disorders: No - Genitourinary/Gynecological Hx Genitourinary Disorders: No - Psychiatric Hx Psychophysiologic Disorder: No Hx Depression: No Hx Substance Use: Yes (DENIES) - Past Surgical History Past Surgical History: No Previous - Anesthesia Hx Anesthesia: No - Suicidal Assessment Feels Threatened In Home Enviroment: No Family/Social History - Physician Review Nursing Documentation Reviewed: Yes Family/Social History: No Known Family HX Smoking Status: Heavy Smoker > 10 Cigarettes Daily Hx Alcohol Use: Yes (DRINKS 1 GLASS/DAY) Hx Substance Use: Yes (DENIES) Hx Substance Use Treatment: No Allergies/Home Meds Allergies/Adverse Reactions: Allergies peanut Allergy (Verified 11/08/17 08:07) ANAPHYLAXIS Home Medications: Home Meds Medication Instructions Recorded Confirmed Candesartan/Hydrochlorothiazid 1 tab PO DAILY 11/08/17 11/10/17 [Candesartan-Hctz 16-12.5 mg Tb] Review of Systems - Physician Review All systems were reviewed & negative as marked: Yes - Review of Systems Constitutional: absent: Fevers, Other (Chills) Respiratory: absent: SOB Cardiovascular: absent: Chest Pain Gastrointestinal: Nausea. absent: Diarrhea, Vomiting Genitourinary Male: absent: Dysuria, Frequency, Hematuria Musculoskeletal: absent: Back Pain, Neck Pain Neurological: Headache. absent: Dizziness Physical Exam Vital Signs Reviewed: Yes Vital Signs Temp Pulse Resp BP Pulse Ox 11/09/17 23:02 98.5 F 74 18 131/68 99 Temperature: Afebrile Blood Pressure: Normal Pulse: Regular Respiratory Rate: Normal Appearance: Positive for: Well-Appearing, Non-Toxic, Comfortable Pain Distress: None Mental Status: Positive for: Alert and Oriented X 3 - Systems Exam Head: Present: Atraumatic, Normocephalic Pupils: Present: PERRL Extroacular Muscles: Present: EOMI Conjunctiva: Present: Normal Mouth: Present: Moist Mucous Membranes Neck: Present: Normal Range of Motion Respiratory/Chest: Present: Clear to Auscultation, Good Air Exchange. No: Respiratory Distress, Accessory Muscle Use Cardiovascular: Present: Regular Rate and Rhythm, Normal S1, S2. No: Murmurs Abdomen: No: Tenderness, Distention, Peritoneal Signs Back: Present: Normal Inspection Upper Extremity: Present: Normal Inspection. No: Cyanosis, Edema Lower Extremity: Present: Normal Inspection. No: Edema Neurological: Present: GCS=15, CN II-XII Intact, Speech Normal Skin: Present: Warm, Dry, Normal Color. No: Rashes Psychiatric: Present: Alert, Oriented x 3, Normal Insight, Normal Concentration Medical Decision Making ED Course and Treatment: 11/09/17 23:12 Impression: 26 year old male presents complaining of reoccurring headache. Plan: -- Labs -- Benadryl, IV Fluids, Toradol, Zofran Inj -- Reassess and disposition Prior Visits: Notes and results from previous visits were reviewed. Patient was last seen in the emergency department on 11/08/17 presents complaining of headache. Patient was discharged. Progress Notes: 11/10/17 02:06 On reevaluation the patient feels better and is in no acute distress. I have discussed the results and plan with the patient, who expresses understanding. Patient given the opportunity to ask question, all questions were answered and there is agreement with the plan to discharge the patient. Patient is stable for discharge. Patient was instructed to follow up with physician or return if symptoms persist/worsen or new concerning symptoms arise. - Lab Interpretations Lab Results: 11/09/17 22:30 11/09/17 22:30 Lab Results 11/09/17 22:30: Sodium 139, Potassium 4.0, Chloride 104, Carbon Dioxide 26, Anion Gap 14, BUN 15, Creatinine 1.2, Est GFR ( Amer) > 60, Est GFR (Non- Af Amer) > 60, Random Glucose 119 H, Calcium 9.5, Total Bilirubin 0.6, AST 22, ALT 43, Alkaline Phosphatase 51, Total Protein 7.4, Albumin 4.4, Globulin 3.1, Albumin/Globulin Ratio 1.4 11/09/17 22:30: WBC 7.4 D, RBC 5.16, Hgb 13.7 L, Hct 39.5 L, MCV 76.6 L, MCH 26.6, MCHC 34.7, RDW 12.5, Plt Count 230, MPV 8.0, Gran % 57.6, Lymph % (Auto) 34.6, [place] % (Auto) 6.3 H, Eos % (Auto) 1.2 L, Baso % (Auto) 0.3, Gran # 4.28, Lymph # (Auto) 2.6, [place] # (Auto) 0.5, Eos # (Auto) 0.1, Baso # (Auto) 0.02 I have reviewed the lab results: Yes - Medication Orders Current Medication Orders: Discontinued Medications Diphenhydramine HCl (Benadryl) 25 mg IVP STAT STA Stop: 11/09/17 23:24 Last Admin: 11/09/17 23:44 Dose: 25 mg IVP Administration Document 11/09/17 23:44 (Rec: 11/09/17 23:44 [id number]) Charges for Administration # of IVP Administrations 1 Sodium Chloride (Sodium Chloride 0.9%) 2,000 mls @ 999 mls/hr IV .Q2H1M STA Stop: 11/10/17 01:23 Last Admin: 11/09/17 23:43 Dose: 999 mls/hr eMAR Start Stop Document 11/09/17 23:43 (Rec: 11/09/17 23:43 [id number]) Intravenous Solution Start Date 11/09/17 Start Time 23:43 Ketorolac Tromethamine (Toradol) 30 mg IVP STAT STA Stop: 11/09/17 23:24 Last Admin: 11/09/17 23:44 Dose: 30 mg MAR Pain Assessment Document 11/09/17 23:44 (Rec: 11/09/17 23:44 [id number]) Pain Reassessment Is this a pain reassessment? No Sleep Is patient sleeping during reassessment? No Presence of Pain Presence of Pain Yes IVP Administration Document 11/09/17 23:44 SH (Rec: 11/09/17 23:44 [id number]) Charges for Administration # of IVP Administrations 1 Ondansetron HCl (Zofran Inj) 8 mg IVP STAT STA Stop: 11/09/17 23:24 Last Admin: 11/09/17 23:44 Dose: 8 mg IVP Administration Document 11/09/17 23:44 SH (Rec: 11/09/17 23:44 [id number]) Charges for Administration # of IVP Administrations 1 - Scribe Statement The provider has reviewed the documentation as recorded by the Aida Koroma Provider Scribe Attestation: All medical record entries made by the Scribe were at my direction and personally dictated by me. I have reviewed the chart and agree that the record accurately reflects my personal performance of the history, physical exam, medical decision making, and the department course for this patient. I have also personally directed, reviewed, and agree with the discharge instructions and disposition. Disposition/Present on Arrival - Present on Arrival Any Indicators Present on Arrival: No History of DVT/PE: No History of Uncontrolled Diabetes: No Urinary Catheter: No History of Decub. Ulcer: No History Surgical Site Infection Following: None - Disposition Have Diagnosis and Disposition been Completed?: Yes Diagnosis: Headache Disposition: HOME/ ROUTINE Disposition Time: :26 Patient Plan: Discharge Condition: GOOD Discharge Instructions (ExitCare): Headache, Adult Additional Instructions: Mr Gilmore- I am sorry that you are not feeling well. Please follow up with your doctor next week. Return to us if worse or any problems. Best- Dr. Chriss Stover Prescriptions: Acetaminophen/Butalbital/Caf [Fioricet] 1 tab PO QID #20 tab Forms: [employer] ([place])
[2017-11-09 23:57] LABS: ALB/GLOB RATIO 1.4 (1.1-1.8); ALBUMIN 4.4 g/dL (3.0-4.8); ALT/SGPT 43 U/L (7-56); AST/SGOT 22 U/L (17-59); BLOOD UREA NITROGEN 15 mg/dL (7-21); CALCIUM 9.5 mg/dL (8.4-10.5); GFR AFRICAN-AMERICAN > 60; GFR NON-AFRICAN AMERICAN > 60
[2017-11-10 00:01] LABS: BASO # 0.02 K/mm3 (0.0-2.0); BASO % 0.3 % (0.0-3.0); EOS # 0.1 (0.0-0.7); EOS % 1.2 % (1.5-5.0); GRAN # 4.28 (1.4-6.5); GRAN % 57.6 % (50.0-68.0); HEMOGLOBIN 13.7 g/dL (14.0-18.0); LYMPH # 2.6 (1.2-3.4); LYMPH % 34.6 % (22.0-35.0); MEAN CELL VOLUME 76.6 fl (80.0-105.0); MEAN CORPUSCULAR HEMOGLOBIN 26.6 pg (25.0-35.0); MEAN CORPUSCULAR HGB CONC 34.7 g/dl (31.0-37.0); MONO # 0.5 (0.1-0.6); MONO % 6.3 % (1.0-6.0); RBC 5.16 10^6/uL (3.5-6.1); RED CELL DISTRIBUTION WIDTH 12.5 % (11.5-14.5); WHITE BLOOD COUNT 7.4 10^3/ul (4.5-11.0)
[2017-11-10 02:31] VITALS: BP 135/76; PULSE 69; RESP 20; TEMP 98.6; O2SAT 96
== END 2017-11-10 02:20 | disposition home or self-care (01) ==
LOC: ED 22:38
DX: R51 Headache (principal); E11.9 Type 2 diabetes mellitus without complications; I10 Essential (primary) hypertension; I73.00 Raynaud's syndrome without gangrene; F17.210 Nicotine dependence, cigarettes, uncomplicated
CPT/HCPCS: 80053; 85025; 96374; 96375; 99285; J1200; J1885; J2405; J7030